=== PATIENT | female | born 1995 | race Caucasian/White ===

== ENCOUNTER → 2023-01-29 08:40 | Outpatient (CLI) | payer OTHER, SELFPAY ==
[2023-01-29 10:15] LABS: Add Manual Diff / Slide Review NO; Basophils Absolute Auto 0 /uL (0-100); Basophils Percent Auto 0.3 % (0-2); Eosinophils Absolute Auto 100 /uL (0-450); Eosinophils Percent Auto 1.2 % (2-4); Hematocrit 34.9 % (36-46); Hemoglobin 12.1 g/dL (12.0-16.0); Lymphocytes Absolute Auto 1500 /uL (1100-4500); Lymphocytes Percent Auto 19.7 % (25-40); Mean Corpuscular HGB Conc 34.7 % (30-36); Mean Corpuscular Hemoglobin 30.3 PG (26-34); Mean Corpuscular Volume 87.3 fL (80-100); Monocytes Absolute Auto 600 /uL (0-900); Monocytes Percent Auto 7.6 % (3-14); Neutrophils Absolute Auto 5600 /uL (1500-7000); Neutrophils Percent Auto 71.2 % (50-75); Platelet Count 278 X10^3/uL (150-400); Red Blood Cell Count 3.99 X10^6/uL (4.0-5.2); Red Cell Distribution Width 13.4 % (11.6-14.8); White Blood Cell Count 7.9 X10^3/uL (4.5-11.0)
[2023-01-29 10:34] LABS: GTT (PREG) 1 Hour PP 50gm Dose 85 mg/dL (76-139)
[2023-01-29 12:07] LABS: Appearance Urine UA CLEAR; Bilirubin Urine UA NEGATIVE (NEGATIVE); Color Urine UA YELLOW; Glucose Urine UA NEGATIVE (Negative); Ketones Urine UA NEGATIVE (NEGATIVE); Leukocyte Esterase Urine UA NEGATIVE (NEGATIVE); Nitrite Urine UA NEGATIVE (Negative); Occult Blood Urine UA NEGATIVE (Negative); Protein Urine UA NEGATIVE (Negative); Specific Gravity Urine UA 1.025 (1.000-1.035); Urobilinogen Urine UA 0.2 E.U./dL (0.2)
[2023-01-29 14:04] LABS: Rubella Antibody IgG 7.5 IU/mL (>15)
[2023-01-29 14:26] LABS: HIV 1 & 2 Ab/Ag 4th Gen Combo NEGATIVE (NEGATIVE); Hep C Virus Ab w/Reflex Quant NEGATIVE s/c (NEGATIVE)
[2023-01-30 10:34] LABS: Varicella IgG Antibody 2504 index (Immune >165)
== END ==
PROVIDERS: Referring Provider Family Medicine; Visit Provider Family Medicine
DX: Z34.02 Encounter for supervision of normal first pregnancy, second trimester (principal); Z3A.26 26 weeks gestation of pregnancy
CPT/HCPCS: 36415; 81003; 82950; 85025; 86762; 86787; 86803; 87086; 87389

== ENCOUNTER → 2023-04-10 11:24 | Outpatient (CLI) | payer OTHER, SELFPAY ==
[2023-04-11 13:05] LABS: Strep Grp B PCR POS for Grp B Strep
== END ==
PROVIDERS: Visit Provider Family Medicine
DX: Z34.93 Encounter for supervision of normal pregnancy, unspecified, third trimester (principal); Z3A.36 36 weeks gestation of pregnancy
CPT/HCPCS: 87653

== ENCOUNTER 2023-05-02 12:47 | Inpatient (IN) | payer OTHER, SELFPAY ==
[2023-05-02 13:48] VITALS: BP 121/75
--- NOTE | 2023-05-02 14:05 | P.HPOB_ITS ---
OB HPI Date/Time Date of admission: 05/02/23 Date Patient Seen: 05/02/23 Time Patient Seen: 12:45 History of Present Condition Chief complaint: INPT OTILIA Calculator Estimated Delivery Date Method Current WG Current Estimate 05/09/23 LMP (Certain) 39w 0d Estimated Gestational Age (weeks): 39w0d : 1 Para: 0 Narrative: 28yo at 39w0d here for primary for breech presentation. The pt denies any contractions, LOF, vaginal bleeding. She is feeling her baby move regularly. There are no other complications with her . care: good care, initiated at week # (11) and pounds weight gain (51) Dating criteria OB: LMP confirmed by 1st trimester US Ultrasounds: normal 1st trimester US and normal mid trimester US Obstetrical complications: none Medical complications OB: none Indications Operative indications ( section): breech presentation Preadmission Labs Last OB Lab Results: Hematocrit 34.9 % (36-46) L 01/29/23 08:45 Hemoglobin 12.1 g/dL (12.0-16.0) 01/29/23 08:45 Hepatitis C Antibody Negative s/c (NEGATIVE) 01/29/23 08:45 Rubella Antibody 7.5 IU/mL (>15) L 01/29/23 08:45 Varicella-Zoster IgG Antibody 2504 index (Immune >165) 01/29/23 08:45 Glucose 1 Hour 85 mg/dL (76-139) 01/29/23 08:45 Group B Streptococcus (PCR) Pos for grp b strep H 04/10/23 11:2 4 External Labs -: HBsAG: negative, HIV: negative, RPR/VDLR: negative, Chlamydia screen: negative and Gonorrhea screen: negative Evaluation Evaluation Baseline heart rate: 150 Variability: Moderate (11-25) monitor accelerations: Present Monitor Decelerations: Absent Category of Tracing: Reactive [facility] Medical History (Updated 04/24/23 @ 15:56 by Jeanie Pérez MD) Chicken pox (~1999) Abnormal Pap smear of cervix (~2019) Surgical History (Updated 02/08/23 @ 22:28 by Esha Stallings) [place] teeth extracted (~2016) Family History (Updated 02/08/23 @ 22:31 by Esha Stallings) Mother Hypertension Father Hypertension Stroke Grandmother Heart disease Rheumatoid arthritis Hypertension Arthritis Grandfather Emphysema lung Hypertension COPD (chronic obstructive pulmonary disease) Brother Hypertension Family/Other Autoimmune disorder Grandfather Hypertension Stroke Grandmother Heart disease Social History (System 01/11/23 @ 12:38 by Eileen Anderson) marital status: number of children: 0 household members: spouse lives independently: Yes caregiver/support person: No housing: apartment (duplex home) pets and animals: No education level: college (associate's degree) occupational status: employed current occupational exposures/hazards: Yes (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[employer]) special shayy needs: No travel history: recent (cross-country move) seatbelt use: always water heater temp set < 120 deg: Yes working smoke detector in home: Yes fire extinguisher in home: Yes carbon monox detector in home: Yes firearms in home: Yes firearms unloaded and locked: Yes do you feel safe at home: Yes Smoking Status: Never smoker second hand exposure: No alcohol intake: former (~2/week when not ) substance use type: does not use during the past year weight has: increased > 10 lbs well-balanced diet: rarely or never daily servings fruits/ve-4 caffeine: No Type(s) of exercise: weight lifting Meds Home Medications and Allergies Home Medications Medication Instructions Recorded Confirmed Type vit no.95-ferrous 1 tab PO DAILY 01/10/23 05/02/23 History fumarate 28 mg-folic acid 800 mcg tablet ( Multivitamins) Double Electric Breast Pump and #1 ea 03/06/23 05/02/23 Rx Supplies hydroxyzine HCl 25 mg tablet 25 mg PO TID PRN anxiety #1 tab 05/01/23 05/02/23 Rx Allergies Allergy/AdvReac Type Severity Reaction Status Date / Time No Known Drug Allergies Allergy Unverified 05/01/23 10:31 OB Exam Resp Effort & Inspection: normal respiratory effort Auscultation: clear to auscultation bilaterally Cardio Rate: regular rate Rhythm: regular rhythm Heart Sounds: S1 normal, S2 normal and no murmurs GI Inspection: non-distended Palpation: Yes soft and No tender Assessment and Plan Assessment and Plan Assessment and Plan narrative: 28yo at 39w0d who presented for primary for breech presentation. Rh positive, GBS positive. The pt consented for in clinic yesterday. Risks discussed including but not limited to bleeding/hemorrhage, infection, injury to other organs such as bowel/bladder, injury to fetus. The pt agrees to blood transfusion if medically necessary. Consent was signed. The pt again consented today. She will received 2g Ancef prior to surgery, and SCDs to be placed.
[2023-05-02 14:19] LABS: Add Manual Diff / Slide Review NO; Basophils Absolute Auto 0 /uL (0-100); Basophils Percent Auto 0.3 % (0-2); Eosinophils Absolute Auto 100 /uL (0-450); Eosinophils Percent Auto 0.6 % (2-4); Hematocrit 38.6 % (36-46); Hemoglobin 13.3 g/dL (12.0-16.0); Lymphocytes Absolute Auto 1700 /uL (1100-4500); Lymphocytes Percent Auto 17.6 % (25-40); Mean Corpuscular HGB Conc 34.3 % (30-36); Mean Corpuscular Volume 87.4 fL (80-100); Monocytes Absolute Auto 600 /uL (0-900); Monocytes Percent Auto 6.3 % (3-14); Neutrophils Absolute Auto 7200 /uL (1500-7000); Neutrophils Percent Auto 75.2 % (50-75); Platelet Count 270 X10^3/uL (150-400); Red Blood Cell Count 4.42 X10^6/uL (4.0-5.2); White Blood Cell Count 9.5 X10^3/uL (4.5-11.0)
[2023-05-02] MEDS: CITRIC ACID/SODIUM CITRATE 15 ML SOLUTION 30 ML PO (14:21)
[2023-05-02] MEDS: CEFAZOLIN 2 GM/100 ML PREMIX 100 ML IV (15:30)
--- NOTE | 2023-05-02 15:58 | SUR.OPER ---
Supine on Padded OR bed, head on pillow, safety belt at thigh, arms secured on padded arm boards at <90 degrees abduction. Bump under right buttock. Legs uncrossed with pillow under knees, gel pad to heels, tape over blanket to lower legs.
--- NOTE | 2023-05-02 16:18 | SUR.OPER ---
viable female infant delivered at 1600. cord blood and placenta to ob with rn
[2023-05-02] MEDS: ACETAMINOPHEN IV 1,000 MG/100 ML VIAL 400 MG IV (16:26)
[2023-05-02 16:48] VITALS: BP 110/77; PULSE 80; RESP 16; TEMP 36.4; O2SAT 100
[2023-05-02 16:53] VITALS: BP 118/72; PULSE 73; RESP 14; O2SAT 100
--- NOTE | 2023-05-02 16:53 | PM.PREOP ---
Pre-operative Note Interval Note History & Physical reviewed/Exam performed by Physician: No Changes to H&P: No
--- NOTE | 2023-05-02 16:54 | P.OP_ITS ---
Operative Date/Time/Diagnoses Date of procedure: 05/02/23 Time of procedure: 03:15 Pre-op diagnosis: 39w0d gestation Rh positive GBS positive Breech presentation Post-op diagnosis: same Procedure & Clinicians Procedure: Primary Same procedure as scheduled: Yes Indications: Breech presentation Surgeon: Jeanie Pérez Master Sonar Technician: Geovany Webb Anesthesia Type: Spinal Operative Notes Findings: Normal uterus, ovaries, and tubes Closure Type: primary Specimen(s): cord blood Intraoperative meds administered: Duramorph, Ketorolac and Pitocin Applied: Catheter Estimated Blood Loss (mL): 300 Blood products transfused: none Procedure in detail: OPERATIVE COURSE: The patient was taken to the operating room where spinal anesthesia was placed. She was then prepared and draped in the normal sterile fashion in the dorsal supine position with a leftward tilt. Anesthesia was tested and found to be adequate. A Pfannensteil skin incision was then made with the scalpel and carried through to the underlying layer of fascia with the scalpel. The fascia was incised in the midline and the incision extended laterally with the Sanchez scissors. The superior aspect of the fascial incision was then grasped with Janeen clamps, elevated with the help of the surgical supply assistant, and the underlying rectus muscles dissected off bluntly and sharply where needed. Attention was then turned to the inferior aspect of the incision which, in a similar fashion, was grasped, tented up with Janeen clamps, and the rectus muscle dissected off bluntly and sharply with Sanchez scissors. The rectus muscles were then in the midline, and the peritoneum was identified and entered bluntly. The peritoneal incision was then extended with good visualization of the bladder. Retraction was provided by the surgical supply assistant. The bladder blade was then inserted and the vesicouterine peritoneum identified, grasped with pick-ups and entered sharply with the Metzenbaum scissors. The incision was then extended laterally and the bladder flap created digitally. The bladder blade was then reinserted and the lower uterine segment incised in a transverse fashion with the scalpel, with the surgical supply assistant providing suction. The uterine incision was then extended superolaterally by pulling superolaterally on both sides. Membranes were ruptured and fluid was clear. The bladder blade was removed and the infants buttocks was delivered with gentle fundal pressure. The anterior shoulder was then delivered. The baby was wrapped in a wet towel, and rotated. The other shoulder was then delivered from anterior position. The head was then delivered easily by placing the 's body on maternal abdomen. The nose and mouth were suctioned with bulb suction and the cord was clamped and cut. The infant was handed off to the waiting nursing staff. Cord blood was collected for Rh status. The placenta was then delivered with gentle cord traction. The uterus was then exteriorized and cleared of all clots and debris. The uterine incision was repaired with O Vicryl in a running, locked fashion. A second layer of the same suture was used for imbrication. Two [id number] with 2-O Chromic were used on the right side of the incision to obtain excellent hemostasis. The uterus was returned to the abdomen. The gutters were cleared of all clots. Hysterotomy was investigated and found to be hemostatic. The peritoneum was closed with 3-O Vicryl. The fascia was reapproximated with O Vicryl in a running fashion. The subcutaneous tissue was reapproximated with 3-O Vicryl. The skin was closed with 4-O Vicryl. The surgical supply assistant helped with retraction during closures. SPONGE AND NEEDLE COUNTS: Correct x3. DRESSING: Aquacel ANTICOAGULATION: SCDs applied prior to Surgery Preop antibiotics given (see MAR). The patient was taken to recovery room having tolerated procedure well. Complications: none [place] Baby 1: Gender: Female Presentation: breech Placental Delivery Description: Spontaneous Cord Vessel Description: 3 Vessels score (1 min): 7 score (5 min): 9 weight: 7 lb 13.258 oz Post-operative Condition: stable Disposition: PACU Aftercare: routine postop
[2023-05-02 16:58] VITALS: BP 117/63; PULSE 75; RESP 14; O2SAT 99
[2023-05-02 17:05] VITALS: BP 107/71; PULSE 64; RESP 15; TEMP 36.3; O2SAT 99
--- NOTE | 2023-05-02 17:12 | SUR.PHASEI ---
SBAR handoff to Michell RN at bedside with joint fundus assessment and dressing check at 1705
[2023-05-02 23:46] VITALS: TEMP 36.9
[2023-05-02] MEDS: KETOROLAC 30 MG/ML VIAL IV (23:46)
[2023-05-03] MEDS: ACETAMINOPHEN 325 MG TABLET 650 MG PO ×4 (04:51→22:11)
[2023-05-03] MEDS: diphenhydrAMINE 50 MG/ML VIAL 25 MG IV (04:52)
[2023-05-03] MEDS: KETOROLAC 30 MG/ML VIAL IV ×2 (06:10→12:03)
[2023-05-03 07:18] LABS: Add Manual Diff / Slide Review NO; Basophils Absolute Auto 0 /uL (0-100); Basophils Percent Auto 0.3 % (0-2); Eosinophils Absolute Auto 100 /uL (0-450); Hematocrit 33.1 % (36-46); Hemoglobin 11.5 g/dL (12.0-16.0); Lymphocytes Absolute Auto 1600 /uL (1100-4500); Lymphocytes Percent Auto 15.7 % (25-40); Mean Corpuscular HGB Conc 34.8 % (30-36); Mean Corpuscular Hemoglobin 30.4 PG (26-34); Mean Corpuscular Volume 87.5 fL (80-100); Monocytes Absolute Auto 700 /uL (0-900); Monocytes Percent Auto 7.1 % (3-14); Neutrophils Absolute Auto 7600 /uL (1500-7000); Neutrophils Percent Auto 75.9 % (50-75); Platelet Count 183 X10^3/uL (150-400); Red Blood Cell Count 3.78 X10^6/uL (4.0-5.2); Red Cell Distribution Width 13.7 % (11.6-14.8)
[2023-05-03] MEDS: PRENATAL VIT,CALC/IRON/FOLIC 1 TABLET 1 TAB PO (09:54)
[2023-05-03] MEDS: DOCUSATE 100 MG CAPSULE PO (09:54)
--- NOTE | 2023-05-03 10:08 | PM.OBPN.1 ---
Subjective - OB Subjective Date Patient Seen: 05/03/23 Time Patient Seen: 10:09 Interval history: Pt is doing well. Her limon has not yet been removed. Her lochia has been appropriate. She is with good latch. She has not yet ambulated, but has passed frequent flatus. Exam Vital Signs (past 8 hours): Oxygen Delivery Method Room Air Resp Auscultation: clear to auscultation bilaterally Cardio Rate: regular rate Rhythm: regular rhythm Heart Sounds: S1 normal, S2 normal and no murmurs GI Inspection: non-distended and incision (dressing c/d/i) Palpation: soft, No guarding and tender (appropriately tender) Auscultation: normal bowel sounds Other: fundus firm and below the umbilicus Extrem Right upper extremity: no edema Objective Labs 05/03/23 06:33 Labs: Laboratory Results - last 24 hr 05/02/23 05/03/23 13:00 06:33 WBC 9.5 10.0 RBC 4.42 3.78 L Hgb 13.3 11.5 L Hct 38.6 33.1 L MCV 87.4 87.5 MCH 30.0 30.4 MCHC 34.3 34.8 RDW 14.0 13.7 Plt Count 270 183 Neut % (Auto) 75.2 H 75.9 H Lymph % (Auto) 17.[address] % (Auto) 6.3 7.1 Eos % (Auto) 0.6 L 1.0 L Baso % (Auto) 0.3 0.3 Neut # (Auto) 7200 H 7600 H Lymph # (Auto) [address] [place] # (Auto) 600 700 Eos # (Auto) 100 100 Baso # (Auto) 0 0 Blood Type O Positive Antibody Screen Negative Assessment & Plan Plan Comments: Pt is a 28yo POD#1 s/p primary for breech presentation without complications. Pt doing well. - Normal care - support Time Spent With Patient Time: Total time spent is greater than 50% in coordination of care (as documented) at patient's floor/unit and/or counseling patient: Time with patient: less than 15 minutes
[2023-05-03] MEDS: IBUPROFEN 600 MG TABLET PO ×2 (17:57→23:57)
[2023-05-03] MEDS: OXYCODONE IR 5 MG TABLET PO ×2 (17:57→22:12)
[2023-05-04] MEDS: OXYCODONE IR 5 MG TABLET PO ×2 (04:19→10:14)
[2023-05-04] MEDS: ACETAMINOPHEN 325 MG TABLET 650 MG PO ×2 (04:19→10:14)
[2023-05-04] MEDS: IBUPROFEN 600 MG TABLET PO (06:14)
[2023-05-04 08:54] VITALS: BP 137/82; PULSE 63; RESP 16; TEMP 36.7
--- NOTE | 2023-05-04 09:06 | PM.OBDS.1 ---
Discharge Providers Provider Date of admission: 05/02/23 12:47 Discharge Date: 05/04/23 Consults: 05/02/23 17:07 Consult to Diesel Mechanic Helper Routine Comment: Discharge provider: Jeanie Pérez MD Summary Hospital Course Date Patient Seen: 05/04/23 Diagnoses: 39w0d gestation GBS positive Rh positive Breech presentation Hospital Course: The pt presented for primary for breech presentation. The surgery was without complications, and the pt delivered a viable baby girl. , there were no complications. At the time of discharge she was voiding, ambulating, and passing flatus without difficulty. Her lochia was decreasing appropriately. Her pain was well controlled. She was with good latch. She will f/u in 1 week for incision check. Peripartum Data Infant Delivery Method: Section Procedures: Primary complications: none 1: Gender: Female Disposition of : home Time Spent with Patient Time attestation: Total time spent providing and/or coordinating discharge services: Objective Labs 05/03/23 06:33 Exam Vital Signs (past 8 hours): - 05/04/23 08:54 Temperature 98.0 F Pulse Rate 63 Respiratory Rate 16 Blood Pressure 137/82 Oxygen Delivery Method Room Air Resp Auscultation: clear to auscultation bilaterally Cardio Rate: regular rate Rhythm: regular rhythm Heart Sounds: S1 normal, S2 normal and no murmurs GI Inspection: non-distended and incision (dressing c/d/i) Palpation: soft, No guarding and tender (appropriately tender) Auscultation: normal bowel sounds Other: fundus firm and below the umbilicus Extrem Right upper extremity: no edema Discharge Plan Discharge Plan Patient Disposition: Home Discharge orders & Medications Prescriptions: New acetaminophen 325 mg Tablet 650 mg PO Q6H Qty: 60 0RF docusate sodium 100 mg Capsule 100 mg PO DAILY Qty: 30 0RF ibuprofen 600 mg Tablet 600 mg PO Q6H Qty: 60 0RF oxycodone 5 mg capsule 5 mg PO Q4H PRN (Reason: pain) Qty: 30 0RF Continued (DME) Double Electric Breast Pump and Supplies See Rx Instructions .ROUTE .MEDSUPPLY Qty: 1 0RF Rx Instructions: As directed hydroxyzine HCl 25 mg tablet 25 mg PO TID PRN (Reason: anxiety) Qty: 1 0RF PNV cmb#95-ferrous fumarate-FA [ Multivitamins] 28 mg iron- 800 mcg tablet 1 tab PO DAILY Follow up/Referrals: Melinda Dill MD [Physician] - (Incision check w/ Dr. Dill: Sunday, May.07 @ 11am) Visit Report/Discharge Packet Instructions: DI for Stand Alone Forms: Discharge: Care, Patient Portal/API, Stroke Signs & Symptoms
[2023-05-04] MEDS: LANOLIN OINT 7 GM 1 APPLIC TOP (10:13)
[2023-05-04] MEDS: PRENATAL VIT,CALC/IRON/FOLIC 1 TABLET 1 TAB PO (10:14)
[2023-05-04] MEDS: DOCUSATE 100 MG CAPSULE PO (10:14)
== END 2023-05-04 12:00 | disposition home or self-care (01) | DRG 788 ==
PROVIDERS: Admitting Provider Family Medicine; Referring Provider Family Medicine; Visit Provider Family Medicine
PROC: 10D00Z1 Extraction of Products of Conception, Low, Open Approach (ICD-10-PCS; CPT 59514; principal; 2023-05-02 14:45)
DX: O32.1XX0 Maternal care for breech presentation, not applicable or unspecified (principal); O99.824 Streptococcus B carrier state complicating childbirth; Z3A.39 39 weeks gestation of pregnancy; Z37.0 Single live birth; Z67.40 Type O blood, Rh positive
CPT/HCPCS: 36415; 59050; 59514; 59515; 76815; 85025; 86850; 86900; 86901; J0131; J0690; J1200; J1885; J2250; J2274

== ENCOUNTER → 2023-05-30 12:01 | Outpatient (CLI) | payer OTHER, SELFPAY ==
[2023-05-30 12:40] LABS: Add Manual Diff / Slide Review NO; Basophils Absolute Auto 0 /uL (0-100); Basophils Percent Auto 0.6 % (0-2); Eosinophils Absolute Auto 200 /uL (0-450); Eosinophils Percent Auto 3.6 % (2-4); Hematocrit 41.3 % (36-46); Hemoglobin 13.9 g/dL (12.0-16.0); Lymphocytes Absolute Auto 2500 /uL (1100-4500); Lymphocytes Percent Auto 36.8 % (25-40); Mean Corpuscular HGB Conc 33.6 % (30-36); Mean Corpuscular Hemoglobin 29.4 PG (26-34); Mean Corpuscular Volume 87.4 fL (80-100); Monocytes Absolute Auto 500 /uL (0-900); Monocytes Percent Auto 8.2 % (3-14); Neutrophils Absolute Auto 3400 /uL (1500-7000); Neutrophils Percent Auto 50.8 % (50-75); Platelet Count 316 X10^3/uL (150-400); Red Blood Cell Count 4.73 X10^6/uL (4.0-5.2); Red Cell Distribution Width 13.3 % (11.6-14.8); White Blood Cell Count 6.7 X10^3/uL (4.5-11.0)
[2023-05-30 12:58] LABS: Alanine Aminotransferase 25 IU/L (<35); Albumin 4.5 g/dL (3.5-5.0); Albumin Globulin Ratio 1.4 (1.0-2.8); Alkaline Phosphatase 101 U/L (38-126); Aspartate Aminotransferase 31 IU/L (14-36); BUN Creatinine Ratio 21.2 (6-22); Bilirubin Total 1.3 mg/dL (0.2-1.3); Blood Urea Nitrogen 14 mg/dL (7-17); Calcium 9.6 mg/dL (8.4-10.2); Carbon Dioxide 22 mmol/L (22-32); Chloride 106 mmol/L (98-107); Estimated Glomerular Filt Rate > 60 mL/min (>60); Globulin 3.3 g/dL (1.7-4.1); Glucose 96 mg/dL (70-100); HEMOLYSIS 15 (0-50); Potassium 3.9 mmol/L (3.4-5.1); Sodium 137 mmol/L (137-145); Total Protein 7.8 g/dL (6.3-8.2)
[2023-05-30 13:24] LABS: Creatinine Urine Random 9.3 mg/dL; Protein (Total) Urine Random 15 mg/dL (0-12); Protein Creatinine Ratio Urine 1.61 GRAM/24H
== END ==
PROVIDERS: PCP Student in an Organized Health Care Education/Training Program; Referring Provider Family Medicine; Visit Provider Family Medicine
DX: O14.95 Unspecified pre-eclampsia, complicating the puerperium (principal); P92.5 Neonatal difficulty in feeding at breast
CPT/HCPCS: 36415; 80053; 82570; 84156; 85025

== ENCOUNTER 2024-02-21 06:43 | Day surgery (SDC) | payer OTHER, SELFPAY ==
[2024-02-21] MEDS: LACTATED RINGERS 1,000 ML 42 ML IV (07:21)
--- NOTE | 2024-02-21 07:36 | P.HP_ITS ---
History of Present Illness History of Present Illness Date Patient Seen: 02/21/24 Time Patient Seen: 07:36 Chief complaint: SDC Narrative: Laisha is a 28-year-old woman who presents for a colonoscopy for rectal bleeding. See office note from November for details. Since then she has had more episodes of rectal bleeding. [facility] Medical History Chicken pox (~1999) Abnormal Pap smear of cervix (~2019) Surgical History [place] teeth extracted (~2016) Family History Mother Hypertension Father Hypertension Stroke Grandmother Heart disease Rheumatoid arthritis Hypertension Arthritis Grandfather Emphysema lung Hypertension COPD (chronic obstructive pulmonary disease) Brother Hypertension Family/Other Autoimmune disorder Grandfather Hypertension Stroke Grandmother Heart disease Social History marital status: number of children: 0 household members: spouse lives independently: Yes caregiver/support person: No housing: apartment (duplex home) pets and animals: No education level: college (associate's degree) occupational status: employed current occupational exposures/hazards: Yes (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[employer]) special shayy needs: No travel history: recent (cross-country move) seatbelt use: always water heater temp set < 120 deg: Yes working smoke detector in home: Yes fire extinguisher in home: Yes carbon monox detector in home: Yes firearms in home: Yes firearms unloaded and locked: Yes do you feel safe at home: Yes Smoking Status: Never smoker second hand exposure: No alcohol intake: former substance use type: does not use during the past year weight has: increased > 10 lbs well-balanced diet: rarely or never daily servings fruits/ve-4 caffeine: No Type(s) of exercise: weight lifting Meds Home Medications and Allergies Home Medications Medication Instructions Recorded Confirmed Type vit no.95-ferrous 1 tab PO DAILY 01/10/23 12/03/23 History fumarate 28 mg-folic acid 800 mcg tablet ( Multivitamins) Double Electric Breast Pump and #1 ea 03/06/23 12/03/23 Rx Supplies hydroxyzine HCl 25 mg tablet 25 mg PO TID PRN anxiety #1 tab 05/01/23 12/03/23 Rx acetaminophen 325 mg tablet 650 mg (2 x 325 mg) PO Q6H #60 tabs 05/04/23 12/03/23 Rx ibuprofen 600 mg tablet 600 mg PO Q6H #60 tabs 05/04/23 02/21/24 Rx hydrocortisone acetate 25 mg 25 mg [place] BID #100 ea 08/24/23 12/03/23 Rx rectal suppository (Anusol-HC) sodium,potassium,mag sulfates 17.5 See Rx Instructions PO .COMPLEX 12/03/23 Rx gram-3.13 gram-1.6 gram oral soln #354 mL (Suprep Bowel Prep Kit) sodium,potassium,mag sulfates 17.5 See Rx Instructions PO .COMPLEX 02/19/24 Rx gram-3.13 gram-1.6 gram oral soln #354 mL (Suprep Bowel Prep Kit) Allergies Allergy/AdvReac Type Severity Reaction Status Date / Time No Known Drug Allergies Allergy Unverified 12/03/23 13:14 Exam Const General: healthy appearing Resp Effort & Inspection: normal respiratory effort Assessment & Plan Assessment and plan (1) Rectal bleeding: Problem details: comes and goes since early 2021 Status: Acute Plan We reviewed the risks and benefits of colonoscopy and she would like to proceed. Time-Based Coding :: [TOTAL MINUTES] spent with patient and on the chart (including review of chart, obtaining history, exam, reviewing outside data, placing orders, documenting exam and treatment plan, and counseling patient) on [DATE].
[2024-02-21 08:06] VITALS: BP 104/59; PULSE 81; RESP 23; TEMP 36.3; O2SAT 99
--- NOTE | 2024-02-21 08:08 | PM.OP.COLON ---
Operative Date/Time/Diagnoses Date of procedure: 02/21/24 Time of procedure: 08:08 Pre-op diagnosis: Rectal bleeding Post-op diagnosis: same Procedure & Clinicians Study performed: Colonoscopy Same procedure as scheduled: Yes Surgeon: Juan David Samson Procedure Notes Procedure in detail: Surgeon: Juan David Samson MD Anesthesia: Anika Milner MD Procedure: The patient was brought to the endoscopy suite, placed in left lateral decubitus position. The patient was connected to monitoring devices. A time-out was performed. Sedation was administered. Once the patient was adequately sedated, a digital rectal exam was performed and was normal. The scope was then inserted and advanced to the cecum where the appendiceal orifice was identified and photographed. The scope was then slowly withdrawn over greater than 6 minutes. The mucosa was thoroughly inspected. No polyps or other abnormalities were found. The scope was retroflexed in the rectum. Moderate internal hemorrhoids were noted. The scope was straightened and removed. The patient was awakened and brought to recovery. Scope withdrawal time: 7 minutes Sedation time: 16 minutes EBL: 0 Findings: Moderate internal hemorrhoids Post-procedure Plan for aftercare: High-fiber diet Colon cancer screening starting at age 45 Disposition: PACU
[2024-02-21 08:09] VITALS: BP 98/61; PULSE 79; RESP 16; O2SAT 99
[2024-02-21 08:11] VITALS: BP 106/68; PULSE 78; RESP 19; O2SAT 99
== END 2024-02-21 08:24 | disposition home or self-care (01) ==
PROVIDERS: PCP Family Medicine; Referring Provider Surgery; Visit Provider Surgery
PROC: 0DJD8ZZ Inspection of Lower Intestinal Tract, Via Natural or Artificial Opening Endoscopic (ICD-10-PCS; CPT 45378; principal; 2024-02-21 07:45)
DX: K62.5 Hemorrhage of anus and rectum (principal); K64.8 Other hemorrhoids
CPT/HCPCS: 45378; 81025; J2704

== ENCOUNTER → 2024-05-13 14:08 | Outpatient (CLI) | payer OTHER, SELFPAY | PROVIDERS: PCP Family Medicine; Referring Provider Internal Medicine; Visit Provider Internal Medicine | DX: Z23 Encounter for immunization (principal) | CPT/HCPCS: 90471; 90656 ==

== ENCOUNTER → 2024-09-18 09:37 | Outpatient (CLI) | payer OTHER, SELFPAY ==
--- NOTE | 2024-09-18 09:40 | DI.US.S_ITS ---
PROCEDURE: US PELVIC COMPLETE INDICATIONS: SCAR PAIN TECHNIQUE: Real-time scanning was performed of the pelvic organs, with image documentation. Additional endovaginal scanning was necessary due to incomplete visualization of the adnexal and endometrial structures by transabdominal scanning. COMPARISON: None. FINDINGS: Uterus: Uterus is anteverted and normal in size at 7.9 x 5.5 x 4.7 cm. The myometrium is heterogeneous with vertical shadowing. The endometrium measures 5 mm combined thickness. section scar noted at the anterior lower uterine segment. Ovaries: The right ovary measures 3.6 x 3.8 x 1.6 cm, with a calculated ovarian volume of 11.4 cc. The left ovary measures 3.6 x 2.8 x 2.0 cm, with a calculated ovarian volume of 10.5 cc. The ovaries have a normal sonographic appearance. greater than 12 follicles can be seen in each ovary. No adnexal masses are seen. Other: No pathologic free abdominal or pelvic fluid. IMPRESSION: 1. No acute sonographic abnormality in the pelvis. No significant abnormality is seen at the Caesarean section scar at the lower uterine segment. 2. Heterogeneous appearance of the uterine myometrium, which is nonspecific but can be associated with adenomyosis and clinical correlation is recommended. 3. Greater than 12 small follicles in the ovaries bilaterally, which can be seen in setting of polycystic ovarian syndrome when associated with appropriate clinical and laboratory findings. Approved by: Ean Dalal M.D. on 09/18/2024 at 14:44
== END ==
PROVIDERS: PCP Family Medicine; Referring Provider Family Medicine; Visit Provider Family Medicine
DX: Z09 Encounter for follow-up examination after completed treatment for conditions other than malignant neoplasm (principal); Z98.891 History of uterine scar from previous surgery
CPT/HCPCS: 76830; 76856